=== PATIENT | male | born 1965 | race Caucasian/White ===

== ENCOUNTER 2020-02-25 22:07 | Inpatient (IN) | payer OTHER, SELFPAY ==
[~2020-02-25] VITALS: Ht 175.3 cm; Wt 99.3 kg
--- NOTE | 2020-02-25 22:09 | NUR ---
PT HARSHA ALS. TAKEN TO BED 7
[2020-02-25 22:20] VITALS: BP 107/74
--- NOTE | 2020-02-25 22:31 | NUR ---
RT AT BEDSIDE FOR EVALUATION.
[2020-02-25] MEDS ORDERED: LACTULOSE 20 GM/30 ML UDC PO ONE (22:40)
--- NOTE | 2020-02-25 22:51 | NUR ---
LYNSEY AND PCR SWABS COLLECTED AND WALKED TO LAB
[2020-02-25 22:55] LABS: APPEARANCE,URINE CLOUDY (CLEAR); BILIRUBIN,URINE 1+ (NEGATIVE); BLOOD, URINE 3+ (NEGATIVE); COLOR,URINE BROWN (YELLOW); LEUKOCYTE ESTERASE ,URINE TRACE (NEGATIVE); NITRITE, URINE POSITIVE (NEGATIVE); UGLUCOSE NEGATIVE (NEGATIVE)
--- NOTE | 2020-02-25 23:00 | NUR ---
PT WAS SENT FROM [facility] [place]UE TO HAVING SOB, HYPOXIA, AND COUGHING UP BLOOD. BILATERAL RHALES UPON AUSCALTAION, NONREBREATHER AT 10L O2. PT HAS DISTENDED ABD DUE TO ASCITES. PT CURRENTLY HAS F/C IN PLACE. ARRIVED WITH TWO IV'S ALREADY IN PLACE, PT HAS BEEN RECEIVING ANTIBIOTICS AT [facility] [place] FOR PNEUMONIA. A/O X 2. PT ARRIVED WITH F/C IN PLACE, DRAINING DARK COLORED URINE. PT PLACED ON BEDSIDE MONITOR, BED IN LOWEST POSITION AND SIDERAIL UP X 2 FOR PT SAFETY. NKA HX - HTN, PNEUMONIA, CIRRHOSIS, ALCOHOL ABUSE.
--- NOTE | 2020-02-25 23:04 | NUR ---
LAB AT BEDSIDE COLLECTING LABS
--- NOTE | 2020-02-25 23:06 | NUR ---
XRAY AT BEDSIDE
[2020-02-25 23:19] LABS: HEMOGLOBIN 12.9 g/dL (12.0-18.0); MEAN CORPUSCULAR HEMOGLOBIN 40 pg (27-31); MEAN CORPUSCULAR HGB CONC 32 g/dL (33-37); MEAN CORPUSCULAR VOLUME 123.6 fL (80-94); PLATELET COUNT (AUTO) 242 K/uL (140-450); RED BLOOD CELL COUNT(AUTO) 3.23 MIL/uL (4.20-6.10); RED CELL DISTRIBUTION WIDTH 13.6 % (11.6-13.7); WHITE BLOOD COUNT (AUTO) 19.4 K/uL (4.8-10.8)
[2020-02-25] MEDS ORDERED: PIPERACILLIN/TAZOBACTAM 3.375 GM in DEXTROSE 5% 50 ML IV ONE (23:40)
[2020-02-25 23:54] LABS: PROTHROMBIN TIME 18.5 secs (10.8-13.4)
--- NOTE | 2020-02-25 23:56 | NUR ---
PT WAS ATTEMPTING TO GET OUT OF BED, HE SAYS IT'S TIME TO GET UP NOW. REORIENTED PT AND REPOSITIONED IN BED.
[2020-02-26 00:09] LABS: ALBUMIN 2.6 g/dL (3.4-5.0); ANION GAP 10.6 (8-16); CARBON DIOXIDE 27.6 mmol/L (21-32); CREATININE 1.3 mg/dL (0.6-1.3); POTASSIUM 4.2 mmol/L (3.5-5.1); TOTAL BILIRUBIN 3.3 mg/dL (0.0-1.0)
[2020-02-26 00:15] LABS: RBC,URINE 50-80 /HPF (0-5)
[2020-02-26 00:17] LABS: YEAST,URINE Few /HPF (None Seen)
[2020-02-26 00:26] LABS: EOSINOPHILS % (MANUAL) 4 % (0-4); LYMPHOCYTES % (MANUAL) 9 % (20-46); MONOCYTES % (MANUAL) 5 % (5-12)
[2020-02-26] MEDS ORDERED: PIPERACILLIN/TAZOBACTAM 3.375 GM VIAL IV ONE (01:19)
[2020-02-26] MEDS ORDERED: cefTRIAXone 1,000 MG VIAL ONE (01:20)
--- NOTE | 2020-02-26 02:00 | NUR ---
LUNCH RELIEF FOR PRIMARY NURSE -- OBSERVED COFFEE GROUND EMESIS . PT SUCTIONED AND NEW NRB MASK AND GOWN PLACED ON PT. SAO2 INCREASED TO 97%. VSS.
--- NOTE | 2020-02-26 02:06 | NUR ---
CONTACTED DR. SPENCE AND MADE HIM AWARE OF PT EPISODE OF COFFEE GROUND EMESIS. PER DR. SPENCE NO NEW ORDERS, CONTINUE TO MONITOR AT THIS TIME.
--- NOTE | 2020-02-26 03:01 | NUR ---
PT REMAINS ON BEDSIDE MONITOR, NONREBREATHER AT 15L O2 SAT 99%. RESPIRATIONS REGULAR AND UNLABORED. WILL CONTINUE TO MONITOR PT.
[2020-02-26] MEDS ORDERED: METR500T1 IV (03:11)
[2020-02-26] MEDS ORDERED: MAGN241.1 PO (03:11)
[2020-02-26] MEDS ORDERED: PIPE100S2 IV (03:11)
[2020-02-26] MEDS ORDERED: VITA1TAB44 PO (03:11)
[2020-02-26] MEDS ORDERED: ATRN INH (03:11)
[2020-02-26] MEDS ORDERED: [UNRECOGNIZED DRUG - CODE] PO (03:11)
[2020-02-26 04:00] VITALS: BP 97/75
--- NOTE | 2020-02-26 04:00 | NUR ---
RECEIVED REPORT FROM ER NURSE. PATIENT IS LETHARGIC, UNRESPONSIVE WHEN TALKING. RESPIRATION EVEN UNLABORED ON 15L NON-REBREATHER MASK. SATING AT 97% NO DISTRESS NOTED. SKIN IS WARM AND DRY. IV PATENT AND INTACT. HEART RATE REGULAR. SINUS TACHY. S1&S2 NOTED. LUNG SOUNDS DIMINISHED UPON AUSCULTATION. BOWEL SOUNDS PRESENT IN ALL QUADRANTS. PATIENT ABDOMEN SOFT, DISTENDED, AND NON-TENDER. MORGAN CATHETER NOTED DRAINING DARK YELLOW URINE. MRSA SCREEN DONE. VITALS WERE TAKEN. ORIENT PATIENT TO ROOM, STAFF, AND CALL LIGHT. ALL SAFETY MEASURES IN PLACE. BED IS AT LOW POSITION. CALL LIGHT WITHIN REACH. WILL CONTINUE TO MONITOR.
--- NOTE | 2020-02-26 04:14 | NUR ---
Patient will be admitted to care of DR SPENCE. Admited to TELE. Will go to room 124. Belongings list completed. Report to ART MARTÍNEZ.
--- NOTE | 2020-02-26 04:30 | NUR ---
OBTAINED MEDICAL INFORMATION FROM NURSE SERNA FROM [facility] [place].
--- NOTE | 2020-02-26 05:00 | NUR ---
CHECKED ON PATIENT. PATIENT SLEEPING RESPIRATION EVEN UNLABORED ON 15L NON-REBREATHER MASK SATING 95%. WILL CONTINUE TO MONITOR
--- NOTE | 2020-02-26 05:45 | NUR ---
SPOKE WITH STELLA PATIENTS BROTHER. STELLA IS REQUESTING TO SPEAK WITH THE DOCTOR. WILL ENDORSE TO DAY SHIFT NURSE.
--- NOTE | 2020-02-26 07:32 | NUR ---
ENDORSED PATIENT TO DAY SHIFT NURSE FOR CONTINUITY OF CARE.
--- NOTE | 2020-02-26 07:42 | NUR ---
RECEIVED PT FROM RETAIL FIELD REPRESENTATIVE NURSE, ON 15 L NRB, 20G IV NOTED TO LFA SALINE LOCK, ISOLATION FOR COVID, PCR PENDING, PT IS RESTING IN BED, SAFETY AND FALL PRECAUTIONS IN PLACE, WILL CONTINUE TO MONITOR.
[2020-02-26 08:00] VITALS: BP 90/65
[2020-02-26] MEDS ORDERED: POTASSIUM CHLORIDE 40 MEQ, LIDOCAINE MPF 1% 25 MG in NACL 0.9% 250 ML IV PRN (08:15)
[2020-02-26] MEDS ORDERED: DOCUSATE SODIUM 100 MG GELCAP PO PRN (08:15)
[2020-02-26] MEDS ORDERED: ONDANSETRON 4 MG/2 ML VIAL IM/IVP PRN (08:15)
[2020-02-26] MEDS ORDERED: ACETAMINOPHEN 325 MG TAB PO PRN (08:15)
[2020-02-26] MEDS: NACL 0.9% 1,000 ML IV SCH ×2 (08:15→15:40)
[2020-02-26] MEDS ORDERED: guaiFENesin DM 200/20 MG-10 ML 10 ML UDC PO PRN (08:15)
[2020-02-26] MEDS ORDERED: ZOLPIDEM 5 MG TAB PO PRN (08:15)
[2020-02-26] MEDS ORDERED: HYDROcodone/APAP 7.5/325 MG 1 TAB PO PRN (08:15)
[2020-02-26] MEDS: PANTOPRAZOLE 40 MG TABEC PO SCH ×2 (09:00→18:03)
--- NOTE | 2020-02-26 09:00 | NUR ---
PT IS RESTING IN BED, NO SIGNS OF DISTRESS NOTED, WILL CONTINUE TO MAKE FREQUENT ROUNDS
--- NOTE | 2020-02-26 09:56 | NUR ---
PATIENT HAS BEEN SCREENED AND CATEGORIZED MODERATE NUTRITION RISK. PATIENT WILL BE SEEN WITHIN 3-5 DAYS OF ADMISSION. 02/28/20 03/01/[address]
[2020-02-26 10:30] LABS: PROTHROMBIN TIME 19.5 secs (10.8-13.4)
--- NOTE | 2020-02-26 11:15 | NUR ---
AWAITING ORDERS, NO SIGNS OF DISTRESS NOTED, WILL CONTINUE TO MONITOR.
[2020-02-26 12:00] VITALS: BP 98/62
[2020-02-26] MEDS: PIPERACILLIN/TAZOBACTAM 3.375 GM in DEXTROSE 5% 50 ML IV SCH ×2 (12:00→18:04)
--- NOTE | 2020-02-26 14:00 | NUR ---
PT IS IN BED, NO SIGNS OF DISTRESS NOTED, WILL CONTINUE TO MAKE FREQUENT ROUNDS
[2020-02-26 15:07] LABS: CHOL/HDL RATIO 5.3 (1-4.5); FREE T4 (FREE THYROXINE) 1.04 ng/dL (0.76-1.46); MAGNESIUM 1.8 mg/dL (1.8-2.4)
[2020-02-26 15:50] LABS: THYROID STIMULATING HORMONE 6.07 uIU/mL (0.34-3.74)
[2020-02-26 16:00] VITALS: BP 92/63
--- NOTE | 2020-02-26 18:05 | NUR ---
ADMINISTERED SCHEDULED MEDICATIONS, PT IS AWAKE, NO SIGNS OF DISTRESS NOTED, WILL CONTINUE TO MONITOR.
--- NOTE | 2020-02-26 18:24 | NUR ---
NON ADMINISTRATION OF PANTOPRAZOLE, PT IS ALTERED AND NOT ABLE TO SWALLOW.
[2020-02-26] MEDS: FLUCONAZOLE 200 MG/NS PREMIX 100 ML IV SCH (18:41)
--- NOTE | 2020-02-26 19:25 | NUR ---
ENDORSED PT TO LICENSED PRACTICAL NURSE NURSE FOR CONTINUITY OF CARE.
--- NOTE | 2020-02-26 19:30 | NUR ---
RECEIVED REPORT FROM DAY SHIFT NURSE. PATIENT IS LETHARGIC, RESPIRATION EVEN UNLABORED ON 15L NON-REBREATHER MASK. SKIN IS WARM AND DRY. IV PATENT AND INTACT. PLAN OF CARE WAS DISCUSSED. ALL SAFETY MEASURES IN PLACE, BED IS AT LOW POSITION. CALL LIGHT WITHIN REACH. WILL CONTINUE TO MONITOR.
[2020-02-26 20:00] VITALS: BP 94/63
--- NOTE | 2020-02-26 20:00 | NUR ---
RECEIVED TELEPHONE ORDER FROM DR. SPENCE FOR SWALLOW EVAL.
--- NOTE | 2020-02-26 21:30 | NUR ---
CHECKED ON PATIENT. PATIENT SLEEPING RESPIRATION EVEN UNLABORED ON 15L NON-REBREATHER MASK. WILL CONTINUE TO MONITOR.
--- NOTE | 2020-02-26 23:00 | NUR ---
PATIENT IS OFF UNIT AND WENT TO CT.
[2020-02-26 23:05] LABS: BARBITURATE, URINE NEGATIVE ng/ml (NEG <=200); BENZODIAZEPINE, URINE POSITIVE ng/mL (NEG <=200); CANNABINOID, URINE NEGATIVE ng/mL (NEG <=50); COCAINE, URINE NEGATIVE ng/mL (NEG <=300); OPIATE, URINE NEGATIVE ng/mL (NEG <=2000); PHENCYCLIDINE SCREEN,URINE NEGATIVE ng/mL (NEG <=25)
--- NOTE | 2020-02-26 23:10 | NUR ---
PATIENT CAME BACK FROM CT. NO DISTRESS NOTED.
[2020-02-27] VITALS: BP 98/64
--- NOTE | 2020-02-27 00:30 | NUR ---
SCHEDULED MEDS WERE GIVEN PER ORDER. NO ASE NOTED. WILL CONTINUE TO MONITOR.
[2020-02-27] MEDS: PIPERACILLIN/TAZOBACTAM 3.375 GM in DEXTROSE 5% 50 ML IV SCH ×4 (00:47→18:44)
[2020-02-27] MEDS: NACL 0.9% 1,000 ML IV SCH ×4 (00:48→22:29)
--- NOTE | 2020-02-27 01:41 | NUR ---
CHECKED ON PATIENT. PATIENT SLEEPING RESPIRATION EVEN UNLABORED ON 15L NON-REBREATHER MASK. NO DISTRESS NOTED, WILL CONTINUE TO MONITOR
[2020-02-27 04:00] VITALS: BP 93/56
--- NOTE | 2020-02-27 04:28 | NUR ---
PROVIDED MORNING CARE
[2020-02-27 07:07] LABS: BASOPHILS # (AUTO) 0.1 K/uL (0.00-0.22); BASOPHILS % (AUTO) 0.5 % (0.0-2.0); EOSINOPHILS # (AUTO) 0.5 K/uL (0-0.4); EOSINOPHILS % (AUTO) 3.2 % (0.0-4.0); HEMATOCRIT 35.3 % (36-52); HEMOGLOBIN 11.4 g/dL (12.0-18.0); LYMPHOCYTES # (AUTO) 1.8 K/uL (2.0-11.5); LYMPHOCYTES % (AUTO) 12.1 % (20.5-51.1); MEAN CORPUSCULAR HEMOGLOBIN 40 pg (27-31); MEAN CORPUSCULAR HGB CONC 32 g/dL (33-37); MEAN CORPUSCULAR VOLUME 124.7 fL (80-94); MONOCYTES # (AUTO) 1.5 K/uL (0.8-1.0); NEUTROPHILS # (AUTO) 11.2 K/uL (1.8-7.7); NEUTROPHILS % (AUTO) 74.2 % (42.2-75.2); PLATELET COUNT (AUTO) 195 K/uL (140-450); RED BLOOD CELL COUNT(AUTO) 2.83 MIL/uL (4.20-6.10); RED CELL DISTRIBUTION WIDTH 13.2 % (11.6-13.7); WHITE BLOOD COUNT (AUTO) 15.1 K/uL (4.8-10.8)
[2020-02-27 07:22] LABS: ANION GAP 13.5 (8-16); CARBON DIOXIDE 26.2 mmol/L (21-32); CREATININE 1.2 mg/dL (0.6-1.3); POTASSIUM 4.7 mmol/L (3.5-5.1)
--- NOTE | 2020-02-27 07:41 | NUR ---
ENDORSED PATIENT TO DAY SHIFT NURSE FOR CONTINUITY OF CARE
--- NOTE | 2020-02-27 07:42 | NUR ---
RECEIVED REPORT FROM PM RN FOR CONTINUITY OF CARE. PT IS STABLE
[2020-02-27 08:00] VITALS: BP 102/64
[2020-02-27] MEDS: PANTOPRAZOLE 40 MG TABEC PO SCH (08:22)
--- NOTE | 2020-02-27 08:25 | NUR ---
PT IS AWAKE AND RESPONSE WITH YES OR NO BY SHAKING HIS HEAD. PT IS NON-VERBAL, RECEIVING IVF TO LEFT FOREARM NS AT 135ML/HR. LUNG SOUNDS DIMINISHED AND ABD IS SOFT AND NONTENDER WITH ACTIVE BS X 4. HAS MORGAN CATH DRAINING ORION URINE. PT ON 15L NRB V/S: 97.3, 105, 20, 102/64, 98% ON 15 L NRB, PAIN FLACC-0. SAFETY MEASURES IN PLACE. WILL CONTINUE WITH POC.
--- NOTE | 2020-02-27 10:38 | NUR ---
PT RESTING IN BED IN NO DISTRESS, RECEIVING IVF AND REMAINS ON 15L NRB.
[2020-02-27 12:00] VITALS: BP 89/66
--- NOTE | 2020-02-27 12:45 | NUR ---
V/S: 96.9, 113, 20, 89/66, 95% ON 15 L NRB. REPOSITIONED, CALL NEEDS MET.
--- NOTE | 2020-02-27 14:50 | NUR ---
PT RESTING IN BED, REPOSITIONED ALL NEEDS MET.
[2020-02-27 16:00] VITALS: BP 86/59
--- NOTE | 2020-02-27 16:53 | NUR ---
OBTAINED TELEPHONE CONSENT FROM BROTHER FOR US GUIDED PARACENTESIS. FAMILY UNDERSTANDS PROCEDURES, RISK AND BENEFITS NO QUESTIONS AT THIS TIME. WAITING FOR MD TO SIGN CONSENT. RADIOLOGY DEPT UPDATED
--- NOTE | 2020-02-27 18:35 | NUR ---
RECEIVED PHONE CALL FROM RADIOLOGY STATING US GUIDED PARACENTESIS WILL BE DONE ON SATURDAY. FAMILY NOTIFIED. PT CONTINUES TO REFUSE TO EAT DESPITE ENCOURAGEMENT
[2020-02-27] MEDS: FLUCONAZOLE 200 MG/NS PREMIX 100 ML IV SCH (19:00)
--- NOTE | 2020-02-27 19:51 | NUR ---
PT ENDORSED TO RN FOR CONTINUITY OF CARE. PT REMAINS STABLE ON 15L NRB Addendum: 02/27/20 at 1957 by Janis Sanchez RN NOTIFIED FAMILY STELLA (BROTHER) THAT PARACENTESIS WILL BE DONE SATURDAY.
[2020-02-27 20:00] VITALS: BP 100/57
--- NOTE | 2020-02-27 20:20 | NUR ---
CHANGED IV FLUID. NO DISTRESS NOTED. WILL CONTINUE TO MONITOR
--- NOTE | 2020-02-27 22:03 | NUR ---
CHECKED ON PATIENT. PATIENT SLEEPING RESPIRATION EVEN UNLABORED ON 15L NON-REBREATHER MASK. NO DISTRESS NOTED. WILL CONTINUE TO MONITOR
[2020-02-28] VITALS: BP 90/57
--- NOTE | 2020-02-28 00:40 | NUR ---
ENDORSED PATIENT TO LUCY FOR CONTINUITY OF CARE.
[2020-02-28] MEDS: PIPERACILLIN/TAZOBACTAM 3.375 GM in DEXTROSE 5% 50 ML IV SCH ×4 (01:13→18:46)
--- NOTE | 2020-02-28 03:00 | NUR ---
RECEIVED ENDORSEMENT FROM MAURICIO CORDOVA. LYING IN BED, ON 15L NRB, O2 SAT WNL, NO DISTRESS, NO SOB, IVF INFUSING, FALL PROTOCOL IN PLACE, DROPLET ISO OBSERVED, PLAN OF CARE DISCUSSED, CALL LIGHT WITHIN REACH.
[2020-02-28 04:00] VITALS: BP 93/49
[2020-02-28] MEDS: NACL 0.9% 1,000 ML IV SCH ×3 (05:09→19:29)
--- NOTE | 2020-02-28 05:10 | NUR ---
PT ASLEEP, RESPIRATION EVEN AND UNLABORED, ZOSYN IVPB GIVEN ORDERED, NO A/R NOTED, CALL LIGHT WITHIN REACH.
[2020-02-28 07:04] LABS: BASOPHILS # (AUTO) 0.2 K/uL (0.00-0.22); BASOPHILS % (AUTO) 1.3 % (0.0-2.0); EOSINOPHILS # (AUTO) 0.5 K/uL (0-0.4); EOSINOPHILS % (AUTO) 3.1 % (0.0-4.0); HEMATOCRIT 32.7 % (36-52); HEMOGLOBIN 10.7 g/dL (12.0-18.0); LYMPHOCYTES % (AUTO) 13.6 % (20.5-51.1); MEAN CORPUSCULAR HEMOGLOBIN 41 pg (27-31); MEAN CORPUSCULAR HGB CONC 33 g/dL (33-37); MEAN CORPUSCULAR VOLUME 124.8 fL (80-94); MONOCYTES # (AUTO) 1.4 K/uL (0.8-1.0); MONOCYTES % (AUTO) 9.4 % (1.7-9.3); NEUTROPHILS # (AUTO) 10.7 K/uL (1.8-7.7); NEUTROPHILS % (AUTO) 72.6 % (42.2-75.2); PLATELET COUNT (AUTO) 180 K/uL (140-450); RED BLOOD CELL COUNT(AUTO) 2.62 MIL/uL (4.20-6.10); RED CELL DISTRIBUTION WIDTH 13.5 % (11.6-13.7); WHITE BLOOD COUNT (AUTO) 14.7 K/uL (4.8-10.8)
[2020-02-28 07:21] LABS: ANION GAP 14.7 (8-16); CARBON DIOXIDE 23.2 mmol/L (21-32); CREATININE 1.1 mg/dL (0.6-1.3); POTASSIUM 4.9 mmol/L (3.5-5.1)
--- NOTE | 2020-02-28 07:53 | NUR ---
PT STABLE, ENDORSED TO AM SHIFT RN FOR CONTINUITY OF CARE.
--- NOTE | 2020-02-28 07:54 | NUR ---
RECEIVED REPORT FROM MANAGER SPORTS NURSE AT BEDSIDE FOR CONTINUITY OF CARE. PATIENT IS LETHARGIC, RESPIRATION EVEN UNLABORED ON 15L NON-REBREATHER MASK. VS WNL. SKIN IS WARM AND DRY. IV PATENT AND INTACT. PLAN OF CARE WAS DISCUSSED. PCR COVID NEGATIVE. ALL SAFETY MEASURES IN PLACE, BED IS AT LOW POSITION WITH BRAKES ON. CALL LIGHT WITHIN REACH. WILL CONTINUE TO MONITOR.
[2020-02-28 08:00] VITALS: BP 108/74
[2020-02-28] MEDS: PANTOPRAZOLE 40 MG TABEC PO SCH (09:00)
--- NOTE | 2020-02-28 10:00 | NUR ---
GAVE REPORT TO AARON MARTÍNEZ. PATIENT RESTING IN BED. NO S/S OF SOB OR DISTRESS NOTED. HR 116, O2 SAT 95%.
--- NOTE | 2020-02-28 10:05 | NUR ---
RECEIVED PATIENT FROM HERNÁN RN. PATIENT IN BED EYES CLOSED, CHEST NOTED RISING. NO ACUTE S/S DISTRESS. RESP EVEN AND UNLABORED ON 15L NONREBREATHER, O2SAT 94%. HOB ELEVATED. SAFETY MEASURES IN PLACE. CALL LIGHT WITHIN REACH. WILL CONTINUE TO MONITOR.
--- NOTE | 2020-02-28 11:04 | NUR ---
DC PLANN[age] YRS OLD MALE PATIENT WAS ADMITTED FROM [facility] [place] WITH A DX OF HYPOXIA, PNEUMONIA, ASCITES, UTI AND LIVER CIRRHOSIS. PT HAS A HX OF LIVER FAILURE, ALCOHOL ABUSE AND HTN. CXR SHOWED BIBASILAR CONSOLIDATION , CT CHEST SHOWD BILATERAL PLEURAL EFFUSION WITH ATELECTASIS AND ABDOMINAL ULTRASOUND SHOWED ASCITES. RAPID AND PCR COVID TEST NEGATIVE.STARTED IVF, IV ABX ZOSYN AND CONTINUED HOME MEDS. CONSULTED WITH GI AND PULMO. DC PLAN TO GO BACK TO [facility]. FAXED ALL THE CLINICALS TO [facility] AND RECEIVED CONFIRMATION CM TO FOLLOW Addendum: 03/01/20 at 1245 by Griselda Palomares RN DC PLANNING: PT IS STILL ON 15LNRB SATING 97% , LOW BP 88/50 HR 105 PARACENTESIS DONE SEEN BY TOMMIE CONTINUE WITH CURRENT TREATMENT. Addendum: 03/02/20 at 1521 by Griselda Palomares RN DC PLANNING: PT IS INTUBATED SEDATED AT THIS TIME CM TO FOLLOW Addendum: 03/05/20 at 1749 by Kayla Wallace CM UPDATED CLINICALS SENT TO [facility]. Addendum: 03/06/20 at 1153 by Kayla Wallace CM UPDATED CLINICALS SENT TO [place].
--- NOTE | 2020-02-28 11:05 | NUR ---
PATIENT NOTED WITH FACE MASK OFF, NO ACUTE S/S. NONREBREATHER IMMEDIATELY REAPPLIED., O2SAT 92%. PATIENT ENCOURAGED TO KEEP HIS MASK ON AT ALL TIMES. REINFORCEMENT NEEDED. WILL MAKE ROUNDS FREQUENTLY. NO ACUTE S/S DISTRESS AT THIS TIME. CALL LIGHT WITHIN REACH. WILL CONTINUE TO MONITOR.
[2020-02-28 12:00] VITALS: BP 108/75
--- NOTE | 2020-02-28 13:35 | NUR ---
PATIENT IN BED SLEEPING, CHEST NOTED RISING. NO ACUTE S/S DISTRESS. CALL LIGHT WITHIN REACH.WILL CONTINUE TO MONITOR.
[2020-02-28 16:00] VITALS: BP 99/54
--- NOTE | 2020-02-28 16:45 | NUR ---
PATIENT IN BED AWAKE, EYES OPEN WITH TRACKING MOVEMENT. RESPONDED TO NAME. APHASIC AT THIS TIME. NO ACUTE S/S DISTRESS. CALL LIGHT WITHIN REACH. WILL CONTINUE TO MONITOR.
--- NOTE | 2020-02-28 18:05 | NUR ---
PATIENT IN BED SLEEPING, CHEST NOTED RISING, RESP EVEN AND UNLABORED ON 15L NONREBREATHER, O2SAT 97%. NO ACUTE S/S DISTRESS AT THIS TIME. CALL LIGHT WITHIN REACH. WILL CONTINUE TO MONITOR.
--- NOTE | 2020-02-28 19:24 | NUR ---
ENDORSED PATIENT TO NIGHT NURSE. PATIENT IN STABLE CONDITION.
--- NOTE | 2020-02-28 19:25 | NUR ---
RECEIVED BEDSIDE REPORT FROM DAY SHIFT NURSE. PATIENT IS SLEEPING AROUSABLE BY TOUCH AND NAME. RESPIRATION EVEN UNLABORED 15L NON-REBREATHER MASK. SATING 96%. NO DISTRESS NOTED. SKIN IS WARM AND DRY. IV PATENT AND INTACT. PLAN OF CARE WAS DISCUSSED. ALL SAFETY MEASURE IN PLACE. BED IS AT LOW POSITION. CALL LIGHT WITHIN REACH. WILL CONTINUE TO MONITOR.
[2020-02-28] MEDS: FLUCONAZOLE 200 MG/NS PREMIX 100 ML IV SCH (19:29)
[2020-02-28 20:00] VITALS: BP 96/60
--- NOTE | 2020-02-28 21:59 | NUR ---
CHECKED ON PATIENT. PATIENT SLEEPING RESPIRATION EVEN UNLABORED ON ROOM 15LNON-REBREATHER MASK. SATING 95%. NO DISTRESS NOTED. WILL CONTINUE TO MONITOR
[2020-02-29] VITALS: BP 82/48
[2020-02-29] MEDS: PIPERACILLIN/TAZOBACTAM 3.375 GM in DEXTROSE 5% 50 ML IV SCH ×4 (00:36→18:44)
--- NOTE | 2020-02-29 00:40 | NUR ---
ADMINISTERED IV ZOSYN PER ORDER. WILL CONTINUE TO MONITOR
[2020-02-29] MEDS: NACL 0.9% 1,000 ML IV SCH (03:00)
--- NOTE | 2020-02-29 03:03 | NUR ---
MADE ROUNDS. PATIENT SLEEPING RESPIRATION EVEN UNLABORED ON ROOM 15LNON-REBREATHER MASK. NO DISTRESS NOTED. WILL CONTINUE TO MONITOR
[2020-02-29 04:00] VITALS: BP 99/63
[2020-02-29 06:48] LABS: CARBON DIOXIDE 24.8 mmol/L (21-32); POTASSIUM 3.8 mmol/L (3.5-5.1)
[2020-02-29 06:53] LABS: BASOPHILS # (AUTO) 0.1 K/uL (0.00-0.22); BASOPHILS % (AUTO) 0.4 % (0.0-2.0); EOSINOPHILS # (AUTO) 0.5 K/uL (0-0.4); EOSINOPHILS % (AUTO) 3.2 % (0.0-4.0); HEMATOCRIT 33.6 % (36-52); LYMPHOCYTES # (AUTO) 2.1 K/uL (2.0-11.5); LYMPHOCYTES % (AUTO) 14.5 % (20.5-51.1); MEAN CORPUSCULAR HEMOGLOBIN 41 pg (27-31); MEAN CORPUSCULAR HGB CONC 33 g/dL (33-37); MEAN CORPUSCULAR VOLUME 125.2 fL (80-94); MONOCYTES # (AUTO) 1.2 K/uL (0.8-1.0); MONOCYTES % (AUTO) 8.6 % (1.7-9.3); NEUTROPHILS # (AUTO) 10.5 K/uL (1.8-7.7); NEUTROPHILS % (AUTO) 73.3 % (42.2-75.2); PLATELET COUNT (AUTO) 185 K/uL (140-450); RED BLOOD CELL COUNT(AUTO) 2.68 MIL/uL (4.20-6.10); RED CELL DISTRIBUTION WIDTH 13.7 % (11.6-13.7); WHITE BLOOD COUNT (AUTO) 14.4 K/uL (4.8-10.8)
--- NOTE | 2020-02-29 07:58 | NUR ---
RECEIVED REPORT FROM NIGHT NURSE FOR CONTINUITY OF CARE, PT IS STABLE. PT ASLEEP. PT ON 15L NON-REBREATHER. PT HAS LFA 20G AND LH 20G INFUSING NS AT 135. PT HAS A MORGAN CATH IN PLACE, SAFETY MEASURES IN PLACE. WILL CONTINUE TO MONITOR.
--- NOTE | 2020-02-29 07:59 | NUR ---
ENDORSED PATIENT TO DAY SHIFT NURSE FOR CONTINUITY OF CARE
[2020-02-29 08:00] VITALS: BP 91/57
[2020-02-29] MEDS: PANTOPRAZOLE 40 MG TABEC PO SCH (09:00)
--- NOTE | 2020-02-29 09:22 | NUR ---
PT ASLEEP, UNABLE TO GIVE PT MORNING MED. VITALS STABLE, WILL CONTINUE TO MONITOR.
--- NOTE | 2020-02-29 11:44 | NUR ---
NOTIFIED DR SPENCE PT IS LETHARGIC AND HAS EDEMATOUS SCROTUM, RECEIVED TORB FOR D5W 75 ML/H, WILL INPUT ORDER AND CARRY IT OUT.
[2020-02-29 12:00] VITALS: BP 96/56
[2020-02-29] MEDS: DEXTROSE 5% 1,000 ML IV SCH (12:15)
--- NOTE | 2020-02-29 12:16 | NUR ---
ADMINISTERED SCHEDULED MEDICATION, MEDICATION EDUCATION PROVIDED. PT ASLEEP, PT TOLERATED WELL. PT IS STABLE, WILL CONTINUE TO MONITOR.
--- NOTE | 2020-02-29 14:20 | NUR ---
PARACENTENSIS FINISHED AND REMOVED 1.7L, PT IS HYPOTENSIVE, WILL CONTINUE TO MONITOR.
[2020-02-29] MEDS ORDERED: MIDODRINE 5 MG TAB PO SCH (15:00)
[2020-02-29 16:00] VITALS: BP 91/62
--- NOTE | 2020-02-29 18:30 | NUR ---
NGT REMOVED, PT BP 88/49, HR 111 O2 98 RR 24, NOTIFIED DR SPENCE.
--- NOTE | 2020-02-29 19:15 | NUR ---
RECEIVED BEDSIDE REPORT FROM DAY SHIFT NURSE. PATIENT IS SLEEPING, WITHDRAWS TO PAIN. RESPIRATION EVEN UNLABORED ON 13L NRB. NO DISTRESS NOTED. SKIN IS WARM AND DRY. IV PATENT AND INTACT. MORGAN CATHETER NOTED DRAINING YELLOW URINE. PLAN OF CARE UPDATED. ALL SAFETY MEASURES IN PLACE. BED IS AT LOW POSITION. CALL LIGHT WITHIN REACH. WILL CONTINUE TO MONITOR
--- NOTE | 2020-02-29 19:30 | NUR ---
ENDORSE TO NIGHT NURSE FOR CONTINUITY OF CARE, PT IS STABLE
[2020-02-29 20:00] VITALS: BP 86/56
--- NOTE | 2020-02-29 20:30 | NUR ---
INSERT NGTUBE TO LEFT NARE. WILL ORDER FOR XRAY FOR PLACEMENT VERIFICATION.
[2020-02-29] MEDS: LACTULOSE 20 GM/30 ML UDC PO SCH (21:00)
--- NOTE | 2020-02-29 22:00 | NUR ---
NGTUBE IS IN PLACE. VERIFIED VIA XRAY. PER DR. SPENCE NO NEED TO ADMINISTER PROAMATINE DUE TO PATIENT BP STABLE.
--- NOTE | 2020-02-29 23:10 | NUR ---
PATIENT LEFT OFF UNIT FOR CT.
--- NOTE | 2020-02-29 23:19 | NUR ---
PATIENT IS BACK. NO DISTRESS NOTED. WILL CONTINUE TO MONITOR
[2020-03-01] VITALS: BP 102/63
[2020-03-01] MEDS: PIPERACILLIN/TAZOBACTAM 3.375 GM in DEXTROSE 5% 50 ML IV SCH ×4 (00:11→18:40)
[2020-03-01] MEDS: DEXTROSE 5% 1,000 ML IV SCH ×3 (01:22→22:03)
--- NOTE | 2020-03-01 01:25 | NUR ---
MADE ROUNDS. PATIENT IS SLEEPING RESPIRATION EVEN UNLABORED ON 15L NRB O2. NO DISTRESS NOTED. WILL CONTINUE TO MONITOR
--- NOTE | 2020-03-01 03:08 | NUR ---
MADE ROUNDS. PATIENT IS SLEEPING RESPIRATION EVEN UNLABORED ON 15L NRB O2. NO DISTRESS NOTED. WILL CONTINUE TO MONITOR
[2020-03-01 04:00] VITALS: BP 92/61
[2020-03-01 04:13] LABS: APPEARANCE,SPUN,BODY FLUID CLEAR (CLEAR); APPEARANCE,UNSPUN,BODY FLUID CLEAR (CLEAR); SPECIMENTYPE,BODY FLUID PARACENTESIS
[2020-03-01 04:24] LABS: COLOR,BODY FLUID YELLOW (LT YELLOW); RBC, BODY FLUID 16 /cu. mm.; TOTAL VOLUME,BODY FLUID 2725 mL; WBC, BODY FLUID 4 /cu. mm.
[2020-03-01 04:25] LABS: GLUCOSE,BODY FLUID 108 mg/dL
[2020-03-01 06:45] LABS: ANION GAP 9.7 (8-16); CARBON DIOXIDE 27.9 mmol/L (21-32); CREATININE 1.1 mg/dL (0.6-1.3); POTASSIUM 3.6 mmol/L (3.5-5.1)
[2020-03-01 06:55] LABS: BASOPHILS # (AUTO) 0.2 K/uL (0.00-0.22); BASOPHILS % (AUTO) 1.4 % (0.0-2.0); EOSINOPHILS # (AUTO) 0.4 K/uL (0-0.4); EOSINOPHILS % (AUTO) 3.1 % (0.0-4.0); HEMATOCRIT 34.3 % (36-52); HEMOGLOBIN 11.2 g/dL (12.0-18.0); LYMPHOCYTES # (AUTO) 1.9 K/uL (2.0-11.5); LYMPHOCYTES % (AUTO) 14.8 % (20.5-51.1); MEAN CORPUSCULAR HEMOGLOBIN 41 pg (27-31); MEAN CORPUSCULAR HGB CONC 33 g/dL (33-37); MEAN CORPUSCULAR VOLUME 124.8 fL (80-94); MONOCYTES # (AUTO) 1.2 K/uL (0.8-1.0); MONOCYTES % (AUTO) 9.4 % (1.7-9.3); NEUTROPHILS # (AUTO) 9.1 K/uL (1.8-7.7); NEUTROPHILS % (AUTO) 71.3 % (42.2-75.2); PLATELET COUNT (AUTO) 166 K/uL (140-450); RED BLOOD CELL COUNT(AUTO) 2.75 MIL/uL (4.20-6.10); WHITE BLOOD COUNT (AUTO) 12.7 K/uL (4.8-10.8)
--- NOTE | 2020-03-01 07:12 | NUR ---
ENDORSED PATIENT TO DAY SHIFT NURSE FOR CONTINUITY OF CARE.
--- NOTE | 2020-03-01 07:13 | NUR ---
RECEIVED REPORT FROM NIGHT NURSE FOR CONTINUITY OF CARE. PT IS STABLE. PT IS ASLEEP. PT HAS LFA20G INFUSING D5W AT 75ML/H, AND LH 20G SALINE LOCK. PT HAS MORGAN CATHETER IN PLACE, NGT IN LEFT NARES. PT ON 15L NON-REBREATHER MASK. SAFETY MEASURES IN PLACE, WILL CONTINUE TO MONITOR.
[2020-03-01 08:00] VITALS: BP 88/50
[2020-03-01] MEDS: PANTOPRAZOLE 40 MG TABEC PO SCH (08:43)
[2020-03-01] MEDS: LACTULOSE 20 GM/30 ML UDC PO SCH ×2 (08:43→21:55)
--- NOTE | 2020-03-01 08:49 | NUR ---
ADMINISTERED SCHEDULED MEDICATION, MEDICATION EDUCATION PROVIDED. PT TOLERATED WELL. PT IS STABLE, WILL CONTINUE TO MONITOR. NOTIFIED DR SPENCE OF PT LOW BP 88/50 AND RECEIVED ORDER FOR MIDODRINE 10MG Q8H, WILL INPUT ORDER AND CARRY IT OUT
[2020-03-01] MEDS ORDERED: MIDODRINE 5 MG TAB ONE (09:43)
[2020-03-01] MEDS: MIDODRINE 5 MG TAB PO SCH ×2 (09:45→21:55)
--- NOTE | 2020-03-01 09:48 | NUR ---
RECEIVED TORB FROM DR SPENCE TO GIVE MIDODRINE NOW FOR BP OF 88/50, MEDICATION ADMINISTERED. PT TOLERATED WELL. PT IS STABLE, WILL CONTINUE TO MONITOR.
[2020-03-01 12:00] VITALS: BP 94/52
--- NOTE | 2020-03-01 12:43 | NUR ---
ADMINISTERED SCHEDULED MEDICATION, MEDIATION EDUCATION PROVIDED, PT LETHARGIC, PT TOLERATED WELL, PT IS STABLE, WILL CONTINUE TO MONITOR.
--- NOTE | 2020-03-01 14:38 | NUR ---
ADMINISTERED SCHEDULED FLUIDS, PT IS STABLE, WILL CONTINUE TO MONITOR
--- NOTE | 2020-03-01 15:49 | NUR ---
03/01/20 RD INITIAL ASSESSMENT COMPLETED PLEASE REFER TO NUTRITION ASSESSMENT UNDER CARE ACTIVITY FOR ESTIMATED NUTRITIONAL NEEDS. 1. CONSIDER ENTERAL SUPPORT WITH OSMOLITE @ 60 ML/HR X 24 HR. START AT 10, INCREASE BY 10 Q4H -THIS WILL PROVIDE 1440 ML OF VOLUME, 1097 ML OF WATER, 2160 KCAL AND 90 GM OF PROTEIN, MEETING >90% OF KCAL AND PROTEIN NEEDS. 2. RECOMMEND FREE WATER FLUSH OF [address] TO FOLLOW-UP 2-3 DAYS, HIGH RISK HASEEB EGAN RD
[2020-03-01 16:00] VITALS: BP 91/58
--- NOTE | 2020-03-01 18:09 | NUR ---
NOTIFIED DR SPENCE ABOUT FNS DIETARY RECOMMENDATION, AND PT HAS DISTENDED ABD. RECEIVED TORB FOR FLEET ENEMA. WILL INPUT ORDER AND CARRY IT OUT.
[2020-03-01] MEDS ORDERED: SODIUM PHOSPHATE 118 ML ENEM RC SCH (18:10)
--- NOTE | 2020-03-01 18:44 | NUR ---
ADMINISTERED SCHEDULED MEDICATION, MEDICATION EDUCATION PROVIDED. PT TOLERATED WELL. PT IS STABLE, WILL CONTINUE TO MONITOR.
[2020-03-01 20:00] VITALS: BP 95/62
--- NOTE | 2020-03-01 22:17 | NUR ---
ADMINISTERED SCHEDULED MEDICATION, MEDICATION EDUCATION PROVIDED. PT TOLERATED WELL. PT IS STABLE, WILL CONTINUE TO MONITOR.
--- NOTE | 2020-03-01 23:05 | NUR ---
RECEIVED REPORT FROM HAMMAD MARTÍNEZ FOR CONTINUITY OF CARE. PT IS LETHARGIC WITH 15L NONREBREATHER, BEDBOUND, SKIN IS INTACT. PT HAS LFA20G INFUSING D5W AT 75ML/H, AND LH 20G SALINE LOCK. PT HAS MORGAN CATHETER IN PLACE, NGT IN LEFT NARES WITH NO FEEDING. SAFETY MEASURES IN PLACE, WILL CONTINUE TO MONITOR.
--- NOTE | 2020-03-01 23:20 | NUR ---
ENDORSE PT TO NIGHT NURSE FOR CONTINUITY OF CARE
[2020-03-02] VITALS (26 sets, daily range): BP systolic 82–135; BP diastolic 48–75
--- NOTE | 2020-03-02 00:15 | NUR ---
CALLED TO PT ROOM FOR LOW SPO2, WHEN ARRIVED SPO2 79% ON NRB, PT NON RESPONSIVE AND NON RESPONSIVE TO STERNAL RUBS. UPDATED ER DR ON PT STATUS AND POSSIBLE NEED FOR INTUBATION.
--- NOTE | 2020-03-02 00:32 | NUR ---
PT INTUBATED BY ER PHYSICIAN. 8.0 ETT SECURED @25 TEETH/GUM, CO2 DETECTOR ADEQUATE COLOR CHANGE WITH BILATERAL BREATH SOUNDS, CXR TO BE ORDERED.
--- NOTE | 2020-03-02 00:36 | NUR ---
PT PLACED ON VENT. SETTINGS MADE BY ER PHYSICIAN, AC 16, VT 500, PEEP 8 AND FIO2 100%. VENT PLUGGED INTO A RED OUTLET WITH ALARMS ON AND FUNCTIONING. ETT IS SECURE WITH ANCHOR FAST DEVICE. WILL CONTINUE TO MONITOR.
[2020-03-02] MEDS ORDERED: PROPOFOL 1000 MG/100 ML PREMIX 100 ML IV ONE (01:08)
--- NOTE | 2020-03-02 01:15 | NUR ---
HANGED PROPOFOL AT 5MCG/KG/MIN (2.22 ML/RH); DRY WEIGHT 74KG. BP 107/73, HR 114, RR 16, 97% o2 SAT. VENT SETTING AC TV 500, PEEP 8, FIO2 100%, RR 16
[2020-03-02] MEDS ORDERED: PROPOFOL 200 MG/20 ML VIAL IV SCH (01:55)
--- NOTE | 2020-03-02 02:15 | NUR ---
LET DR FREDERICK KNOW THAT PATIENT JUST GOT INTUBATED AND TRANSFER TO ICU
--- NOTE | 2020-03-02 02:31 | NUR ---
DR VICKI SERRANO PENDING CALL BACK TO INFORM HIM OF PT CRITICAL RESULTS POST INTUBATION PH [phone] CO2 52.3 PO2 94.4 HCO3 22.5 BE -5.1
--- NOTE | 2020-03-02 02:38 | NUR ---
DR COVARRUBIAS ALSO PGD PENDING CALL BACK
--- NOTE | 2020-03-02 02:40 | NUR ---
PER ABG RESULTS RR INCREASED TO 20, PT TOLERATING WELL. WAITING FOR PLANT MAINTENANCE MECHANIC TO CALL BACK. WILL CONTINUE TO MONITOR.
[2020-03-02] MEDS: MIDODRINE 5 MG TAB PO SCH ×3 (05:38→21:23)
--- NOTE | 2020-03-02 05:55 | NUR ---
WESTLEYD WAS AWARE OF THE RESULT OF THE CXR, NO NEW ORDER
--- NOTE | 2020-03-02 06:14 | NUR ---
TEXTED DR FREDERICK IF D5 @75ML/HR STILL NEEDS TO BE CONTINUED. TEXTED BACK TO DECREASE TO 25ML/HR
[2020-03-02 06:35] LABS: BASOPHILS # (AUTO) 0.1 K/uL (0.00-0.22); BASOPHILS % (AUTO) 0.8 % (0.0-2.0); EOSINOPHILS # (AUTO) 0.5 K/uL (0-0.4); EOSINOPHILS % (AUTO) 2.7 % (0.0-4.0); HEMATOCRIT 38.1 % (36-52); HEMOGLOBIN 12.4 g/dL (12.0-18.0); LYMPHOCYTES % (AUTO) 11.8 % (20.5-51.1); MEAN CORPUSCULAR HEMOGLOBIN 40 pg (27-31); MEAN CORPUSCULAR HGB CONC 33 g/dL (33-37); MEAN CORPUSCULAR VOLUME 123.3 fL (80-94); MONOCYTES # (AUTO) 1.7 K/uL (0.8-1.0); NEUTROPHILS # (AUTO) 12.9 K/uL (1.8-7.7); NEUTROPHILS % (AUTO) 74.7 % (42.2-75.2); PLATELET COUNT (AUTO) 178 K/uL (140-450); RED BLOOD CELL COUNT(AUTO) 3.09 MIL/uL (4.20-6.10); RED CELL DISTRIBUTION WIDTH 14.1 % (11.6-13.7); WHITE BLOOD COUNT (AUTO) 17.3 K/uL (4.8-10.8)
[2020-03-02 06:38] LABS: ANION GAP 11.3 (8-16); CARBON DIOXIDE 27.3 mmol/L (21-32); CREATININE 1.2 mg/dL (0.6-1.3); POTASSIUM 3.6 mmol/L (3.5-5.1)
--- NOTE | 2020-03-02 07:17 | NUR ---
WILL ENDORSE TO DAY SHIFT NURSE FOR CONTINUITY CARE
[2020-03-02] MEDS: PROPOFOL 1000 MG/100 ML PREMIX 100 ML IV PRN (07:30)
--- NOTE | 2020-03-02 07:30 | NUR ---
BEDSIDE REPORT RECEIVED FROM SPECIAL EQUIPMENT TECHNICIAN NURSE OWN, PT INTUBATED SEDATED WITH PROPOFOL AT 5MCG TO RASS-3, DRY WT 63.5KG, RESPONDS TO PAINFUL STIMULI, VENT SETTING ACPC 100% FIO2, RR 20, PEEP 8, OGT IN PLACE, NO RESIDUAL, RESP EVEN UNLABORED, SYNCH WITH VENT, EQUAL BILAT CHEST RISE AND FALL, SKIN WARM DRY COLOR WNL, SR-ST ON MONITOR AT 108, ABD SOFT, LARGE, DISTENDED, S/P PARACENTHESIS, SIT EWNL, MORGAN CATH IN PLACE, FC DONE, CHG WIPE DONE, ORAL CARE DONE. ALL SAFETY MEASRUES IN PLACE, WILL CONTIINUE TO MONITOR Addendum: 03/02/20 at 1229 by Lexi Boswell RN DRY WT 74KG
--- NOTE | 2020-03-02 08:13 | NUR ---
RECEIVED ON A PB 840 VENTILATOR PLUGGED INTO RED OUTLET TOLERATING WELL WITHOUT ADVERSE REACTIONS NOTED TO AN ENDOTRACHEAL TUBE #8.0 SECURED AT 25cm TEETH/GUM LINE WITH AN ANCHOR FAST CUFF PRESSURE CHECKED NOTED AMBU BAG AT BEDSIDE LOC RESTING COMFORTABLY GOOD CHEST RISE ENDOTRACHEAL SUCTION FOR SMALL THICK YELLOW SECRETIONS AIRWAY PATENT
[2020-03-02] MEDS ORDERED: PANTOPRAZOLE 40 MG INJ VIAL ONE (08:20)
[2020-03-02] MEDS: LACTULOSE 20 GM/30 ML UDC PO SCH ×2 (09:35→21:22)
[2020-03-02] MEDS: PANTOPRAZOLE 40 MG INJ VIAL IVP SCH (09:35)
--- NOTE | 2020-03-02 12:25 | NUR ---
SEDATED RESTING COMFORTABLY EQUAL CHEST RISE GOOD CHEST RISE AND AERATION THROUGHOUT BILATERAL LUNG LEOS AIRWAY PATENT
--- NOTE | 2020-03-02 13:20 | NUR ---
SPOKE WITH BROTHER STELLA, PT CONDITION UPDATE PROVIDED, REPORTED TO HIM THAT PT WAS INTUBATED LAST NIGHT FOR RESP FAILURE, STELLA REQUESTS TO SPEAK WITH A PHYSICIAN, DR MAURICE NOTIFIED.
--- NOTE | 2020-03-02 13:27 | NUR ---
CALLED DR. MAURICE FOR TUBE FEEDING RECOMMENDATIONS. DR. MUARICE APPROVED.
--- NOTE | 2020-03-02 13:42 | NUR ---
SOCIAL WORK NOTE: MAI CONTACTED PATIENT'S BROTHER STELLA POLLOCK [phone]. STELLA REQUESTED FOR DOCUMENTATION TO BE COMPLETED REGARDING PATIENT BEING INCAPACITATED. STELLA REQUESTED FOR PHYSICIAN TO COMPLETE DECLARATION OF INCAPACITY. MAI INFORMED STELLA THAT PCP COMPLETES FORM. STELLA REQUESTED TO SPEAK TO BIOSOLIDS MANAGEMENT TECHNICIAN. MAI TRANSFERRED STELLA. MAI WILL REMAIN AVAILABLE IF FURTHER ISSUES ARISE. Addendum: 03/03/20 at 1415 by Peace Guajardo CM YAIMA spoke with pt's brother Stella; Stella clarified the letter that he needs to use the financial power of prosecuting attorney that pt signed in 2014. COMPUTER OPERATIONS ANALYST spoke with physician; letter has been written and signed by COMPUTER OPERATIONS ANALYST and physician. [facility] has sent letter to pt's brother via e-mail ([email or web address]). COMPUTER OPERATIONS ANALYST spoke with pt's brother about pt's wishes and code status. Pt's brother states that the end goal is to see if pt is eligible for a liver transplant down the road. Pt's brother understands pt's current condition and states that he would like to see if pt can be weaned from the ventilator. Pt's brother states that if pt is unable to be weaned that he will look at comfort measures and removing ventilator; pt's brother states that he does not feel he is ready to make that decision at this time due to the intubation happening recently.
--- NOTE | 2020-03-02 13:51 | NUR ---
BED BATH GIVE, PERICARE DONE, PT WITH LOOSE STOOL X1.
--- NOTE | 2020-03-02 15:08 | NUR ---
PER DR SEVILLA, IVF CHANGED TO 1/2 NS AT 50ML/HR,
--- NOTE | 2020-03-02 17:08 | NUR ---
SEDATED GOOD CHEST RISE AND AERATION THROUGHOUT BILATERAL LUNG LEOS AIRWAY PATENT
--- NOTE | 2020-03-02 17:45 | NUR ---
LARGE DARK GREEN STOOL, PERICARE DONE, LEFT HAND IV LEAKING, REMOVED, CATH TIP INTACT, BLEEDING CONTROLLED.
[2020-03-02] MEDS: NACL 0.45% 1,000 ML IV SCH (18:50)
--- NOTE | 2020-03-02 19:00 | NUR ---
PICC LINE CONSENT OBTAINED FROM BROTHER STELLA POLLOCK VIA PHONE, NURSING VIDEO NETWORK ENGINEER NOTIFIED OF PICC ORDER
--- NOTE | 2020-03-02 20:00 | NUR ---
RECEIVED ENDORSEMENT FROM ICU DAY NURSE FOR CONTINUITY OF CARE. PT IN BED AOX1 HE IS INTUBATED AND ON BED REST WITH ALL FALLS PRECAUTIONS IN PLACE, PT HAS 2 IV SITES HE HAS LEFT F/A 20G AND L EJ 18G, WHICH IS RUNNING 1/2 NS AT 50MLS/HR. L F/A RUNNING PROPOFOL ORDERED. PT REMAINS AT RASS-3. HE HAS A NG TUBE IN PLACE. PT RR AT 30 100 FIO2 AND STATING 100%. FLACC-O
--- NOTE | 2020-03-02 21:30 | NUR ---
PT GIVEN ALL ORDERED MEDS. OSMOLITE FEEDING STARTED.
[2020-03-03] VITALS (27 sets, daily range): BP systolic 90–124; BP diastolic 49–85
--- NOTE | 2020-03-03 | NUR ---
PT WAS TURNED AND REPOSITIONED, HE HAS A MORGAN CATHETER INTACT NO BM NOTED. PT ABDOMEN DISTENDED BUT SOFT. ALL FLUIDS RUNNING ORDERED WITH RASS -3 SCORE. MESSAGE LEFT FOR [place] PICC LINE NURSE PICC LINE KIT LEFT AT BEDSIDE.
--- NOTE | 2020-03-03 04:00 | NUR ---
PT IN BED AOX1 ALL FLUIDS RUNNING ORDERED. ALL ORDERED PRECAUTIONS IN PLACE. PT TURNED AND REPOSITIONED. PT IN STABLE CONDITION.
[2020-03-03] MEDS: MIDODRINE 5 MG TAB PO SCH ×3 (05:00→20:07)
[2020-03-03 06:45] LABS: BASOPHILS # (AUTO) 0.1 K/uL (0.00-0.22); BASOPHILS % (AUTO) 0.5 % (0.0-2.0); EOSINOPHILS # (AUTO) 0.5 K/uL (0-0.4); EOSINOPHILS % (AUTO) 2.9 % (0.0-4.0); HEMATOCRIT 36.3 % (36-52); LYMPHOCYTES # (AUTO) 2.6 K/uL (2.0-11.5); LYMPHOCYTES % (AUTO) 16.2 % (20.5-51.1); MEAN CORPUSCULAR HEMOGLOBIN 40 pg (27-31); MEAN CORPUSCULAR HGB CONC 33 g/dL (33-37); MEAN CORPUSCULAR VOLUME 122.3 fL (80-94); MONOCYTES # (AUTO) 1.1 K/uL (0.8-1.0); NEUTROPHILS # (AUTO) 11.8 K/uL (1.8-7.7); NEUTROPHILS % (AUTO) 73.4 % (42.2-75.2); PLATELET COUNT (AUTO) 156 K/uL (140-450); RED BLOOD CELL COUNT(AUTO) 2.97 MIL/uL (4.20-6.10); RED CELL DISTRIBUTION WIDTH 13.6 % (11.6-13.7); WHITE BLOOD COUNT (AUTO) 16.1 K/uL (4.8-10.8)
[2020-03-03 07:06] LABS: CARBON DIOXIDE 21.6 mmol/L (21-32); CREATININE 1.7 mg/dL (0.6-1.3); POTASSIUM 3.6 mmol/L (3.5-5.1)
--- NOTE | 2020-03-03 07:30 | NUR ---
RECEIVED BEDSIDE REPORT FROM VIOLIN MECHANIC NURSE. PT IN BED, LAYING SUPINE, HOB 30 DEGREES. ETT TO VENT: ACVC 100% FIO2, RR 20, PEEP 5. SEDATED TO RASS -3, RESPONDS TO LIGHT PAIN. NG TUBE IN PLACE, OSMOLITE 1.5 DRAINING TO GRAVITY. RECTAL TUBE IN PLACE. MORGAN CATHETER IN PLACE, DRAINING TO GRAVITY, LIGHT ORION URINE. R FA 20G, R EJ 18G, INFUSING PROPOFOL 2 3 MCG/KG/MIN, 0.45% NS @ 50 ML/HR. BED IN LOW POSITION, AIR PLANT ENGINEER IN PLACE. SAFETY MEASURES IN PLACE.
--- NOTE | 2020-03-03 08:45 | NUR ---
RECEIVED ON A PB840 VENTILATOR PLUGGED INTO RED OUTLET TOLERATING WELL WITHOUT ADVERSE REACTIONS NOTED TO AN ENDOTRACHEAL TUBE #8.0 SECURED AT 25cm TEETH/GUM LINE WITH AN ANCHOR FAST CUFF PRESSURE CHECKED NOTED AMBU BAG AT BEDSIDE LOC SEDATED RESTING WELL GOOD CHEST RISE ENDOTRACHEAL TUBE SUCTION FOR COPIOUS THIN ELLIS "FEEDING" SECRETIONS AIRWAY PATENT CORRECTIONAL PROBATION OFFICER TO DISCUSS WITH MYRNA/RN FINDINGS OF PRESENCE OF FEEDING DURING SUCTIONING
[2020-03-03] MEDS: LACTULOSE 20 GM/30 ML UDC PO SCH ×2 (09:29→20:07)
[2020-03-03] MEDS: PANTOPRAZOLE 40 MG INJ VIAL IVP SCH (09:29)
--- NOTE | 2020-03-03 09:48 | NUR ---
ADMINISTERED SCHEDULED AM MEDS PER MD ORDER. MED EDUCATION PROVIDED, REINFORCEMENT NEEDED. G TUBE RESIDUAL 10 ML, FLUSHED BEFORE AND AFTER MEDS. MORNING HYGIENE PROVIDED: HCG BATH, CATHETER CARE, ORAL CARE. REPOSITIONED PT AND OFFLOADED PRESSURE WITH PILLOWS. ACTIVITY TOLERATED WELL, NO SIGNS OF ACUTE DISTRESS NOTED. BED IN LOW POSITION, HOB 30 [address]GREES. KISS MIXER IN PLACE. SAFETY MEASURES IN PLACE.
--- NOTE | 2020-03-03 11:35 | NUR ---
RESTING WELL STABLE GOOD CHEST RISE AIRWAY PATENT
--- NOTE | 2020-03-03 13:33 | NUR ---
ADMINISTERED SCHEDULED MEDS PER MD ORDER. MED EDUCATION PROVIDED, REINFORCEMENT NEEDED. G TUBE RESIDUAL 5 ML, FLUSHED BEFORE AND AFTER MEDS. PT REPOSITIONED AND OFFLOADED PRESSURE WITH PILLOWS. BED IN LOW POSITION, JOURNALISTS AND OTHER WRITERS IN PLACE, SAFETY MEASURES IN PLACE.
[2020-03-03] MEDS: NACL 0.45% 1,000 ML IV SCH (14:50)
--- NOTE | 2020-03-03 16:13 | NUR ---
03/03/20 RD FOLLOW UP COMPLETED PLEASE REFER TO NUTRITION ASSESSMENT UNDER CARE ACTIVITY FOR ESTIMATED NUTRITIONAL NEEDS. 1. CONTINUE OSMOLITE @ 60 ML/HR X 24 HR. START AT 10, INCREASE BY 10 Q4H -THIS WILL PROVIDE 1440 ML OF VOLUME, 1097 ML OF WATER, 2160 KCAL AND 90 GM OF PROTEIN, MEETING >90% OF KCAL AND PROTEIN NEEDS. 2. RECOMMEND FREE WATER FLUSH OF [address] TO FOLLOW-UP 2-3 DAYS, HIGH RISK HASEEB EGAN RD
--- NOTE | 2020-03-03 19:35 | NUR ---
RECEIVED BEDSIDE REPORT FROM DAY SHIFT NURSE. PATIENT IN BED RASS -3. RESPIRATION EVEN UNLABORED ON ETT TO VENT: AC/VC: FIO2 100%, RATE: 20, PEEP: 5 V: 500 SPO2 93%. SKIN IS WARM AND DRY. IV PATENT AND INTACT, PROPOFOL RUNING AT 10.92 MCG/KG/MIN AND 1/2 NS AT 50CC. NGTUBE NOTED. MORGAN CATHETER NOTED DRAINING DARK ORION URINE. RIGHT EJ 18G NOTED. PLAN OF CARE UPDATED. ALL SAFETY MEASURES IN PLACE. BED IS AT LOW POSITION. CALL LIGHT WITHIN REACH. WILL CONTINUE TO MONITOR
[2020-03-03] MEDS: PROPOFOL 1000 MG/100 ML PREMIX 100 ML IV PRN (20:26)
--- NOTE | 2020-03-03 21:30 | NUR ---
SUCTIONED PATIENT, OBTAINED MODERATE AMOUNT OF SECRETION.
--- NOTE | 2020-03-03 22:45 | NUR ---
PROVIDED ORAL CARE
--- NOTE | 2020-03-03 23:15 | NUR ---
PATIENT NGTUBE GOT PULLED OUT. REINSERT NGTUBE AND ORDER CXRAY FOR PLACEMENT
[2020-03-04] VITALS (27 sets, daily range): BP systolic 92–133; BP diastolic 48–80
--- NOTE | 2020-03-04 00:20 | NUR ---
XRAY RESULT NGTUBE NOT IN PLACE, REPOSITIONED NGTUBE WILL ORDER FOR CXRAY FOR PLACEMENT VERIFICATION.
--- NOTE | 2020-03-04 02:00 | NUR ---
PICC LINE NURSE AT BEDSIDE
--- NOTE | 2020-03-04 02:34 | NUR ---
PER PICC LINE NURSE. RIGHT UPPER ARM PICC LINE OKAY TO USE.
--- NOTE | 2020-03-04 02:40 | NUR ---
NGTUBE IN PLACED. RESUME FEEDING
--- NOTE | 2020-03-04 04:30 | NUR ---
PROVIDED MORNING CARE
[2020-03-04] MEDS: MIDODRINE 5 MG TAB PO SCH ×3 (04:44→21:06)
[2020-03-04 06:16] LABS: HEMATOCRIT 36.3 % (36-52); HEMOGLOBIN 11.8 g/dL (12.0-18.0); MEAN CORPUSCULAR HEMOGLOBIN 40 pg (27-31); MEAN CORPUSCULAR HGB CONC 32 g/dL (33-37); MEAN CORPUSCULAR VOLUME 122.5 fL (80-94); PLATELET COUNT (AUTO) 148 K/uL (140-450); RED BLOOD CELL COUNT(AUTO) 2.96 MIL/uL (4.20-6.10); WHITE BLOOD COUNT (AUTO) 24.5 K/uL (4.8-10.8)
[2020-03-04 07:24] LABS: ANION GAP 16.3 (8-16); POTASSIUM 4.3 mmol/L (3.5-5.1)
--- NOTE | 2020-03-04 07:24 | NUR ---
RECEIVED BEDSIDE REPORT FROM CARDIAC CATHETERIZATION TECHNOLOGIST NURSE. PT IN BED, LAYING SUPINE, HOB 30 DEGREES. ETT TO VENT: ACVC 100% FIO2, RR 20, PEEP 5. SEDATED TO RASS -3. NG TUBE IN PLACE, OSMOLITE 1.5 DRAINING TO GRAVITY. RECTAL TUBE IN PLACE. MORGAN CATHETER IN PLACE, DRAINING TO GRAVITY, LIGHT ORION URINE. R FA 20G, R EJ 18G, INFUSING PROPOFOL @ 10 MCG/KG/MIN, 0.45% NS @ 50 ML/HR. BED IN LOW POSITION, PARKING INSPECTOR IN PLACE. SAFETY MEASURES IN PLACE
--- NOTE | 2020-03-04 07:36 | NUR ---
ENDORSED PATIENT TO DAY SHIFT NURSE AT BEDSIDE FOR CONTINUITY OF CARE.
[2020-03-04 07:43] LABS: MAGNESIUM 2.4 mg/dL (1.8-2.4); PHOSPHORUS 3.9 mg/dL (2.5-4.9)
[2020-03-04] MEDS: LACTULOSE 20 GM/30 ML UDC PO SCH ×2 (08:11→21:06)
[2020-03-04] MEDS: PANTOPRAZOLE 40 MG INJ VIAL IVP SCH (08:12)
--- NOTE | 2020-03-04 08:12 | NUR ---
ADMINISTERED SCHEDULED AM MEDS PER MD ORDER. MED EDUCATION PROVIDED, REINFORCEMENT NEEDED. G TUBE RESIDUAL 20 ML, FLUSHED BEFORE AND AFTER MEDS. AM HYGIENE PROVIDED: HCG BATH, ORAL CARE, CATHETER CARE, CHANGED ALL DIRTY LINEN. PT REPOSITIONED AND OFFLOADED PRESSURE WITH PILLOWS. ACTIVITY TOLERATED WELL, NO SIGNS OF ACUTE DISTRESS NOTED. SAFETY MEASURES IN PLACE, PRACTICAL NURSING TEACHER IN PLACE.
[2020-03-04 09:31] LABS: LYMPHOCYTES % (MANUAL) 4 % (20-46); MONOCYTES % (MANUAL) 2 % (5-12)
[2020-03-04] MEDS: NACL 0.45% 1,000 ML IV SCH ×2 (10:50→17:28)
--- NOTE | 2020-03-04 13:25 | NUR ---
ADMINISTERED SCHEDULED MED PER MD ORDER. MED EDUCATION PROVIDED, REINFORCEMENT NEEDED. PT REPOSITIONED AND OFFLOADED PRESSURE WITH PILLOWS. INDUSTRIAL ELECTRICAL TECHNICIAN IN PLACE, SAFETY MEASURES IN PLACE.
[2020-03-04] MEDS: PROPOFOL 1000 MG/100 ML PREMIX 100 ML IV PRN (17:29)
--- NOTE | 2020-03-04 19:09 | NUR ---
RECEIVED PATIENT FROM DAY SHIFT ON DOCUMENTED VENT SETTINGS. VENT PLUGGED INTO RED OUTLET. BMV AT BEDSIDE.ETT SECURED. ALARMS SET. WILL CONT TO MONITOR
--- NOTE | 2020-03-04 20:00 | NUR ---
RECEIVED REPORT FROM DAY SHIFT RN. PT ETT TO VENT. A/C VC. FIO2 100%, TV- 500, PEEP 5, RATE 20. RESPIRATION EVEN AND UNLABORED. CHEST EXPANSION SYMMETRICAL. ORAL MUCOSA PINK AND MOIST. SKIN WARM, DRY AND INTACT. <3 CAPILLARY REFILL. PT HAS ACCESSES ON THE LEFT EJ 18G, LEFT FA 20G SALINE LOCKED, RIGHT UPPER ARM PICC ASYMPTOMATIC, PATENT AND INTACT. PT ON PROPOFOL @10MCG/KG/MIN. RASS -3, DRY WEIGHT OF 74KG. NGT LEFT NARE TO FEEDING. PATENT AND INTACT. GRAVITY FEEDING (OSMOLITE) AT 60MLS/HR / 14 GTTS/MIN. BED IN LOWEST POSITION, SIDE RAILS UP, ISOLATION PRECAUTIONS MAINTAINED. WILL CONTINUE TO MONITOR.
[2020-03-04] MEDS: PIPERACILLIN/TAZOBACTAM 2.25 GM in DEXTROSE 5% 50 ML IV SCH (21:05)
[2020-03-05] VITALS (27 sets, daily range): BP systolic 77–109; BP diastolic 45–65
[2020-03-05] MEDS: PIPERACILLIN/TAZOBACTAM 2.25 GM in DEXTROSE 5% 50 ML IV SCH ×3 (04:31→21:00)
[2020-03-05] MEDS: MIDODRINE 5 MG TAB PO SCH ×3 (05:00→21:00)
[2020-03-05 06:48] LABS: BASOPHILS # (AUTO) 0.1 K/uL (0.00-0.22); BASOPHILS % (AUTO) 0.5 % (0.0-2.0); EOSINOPHILS # (AUTO) 0.4 K/uL (0-0.4); EOSINOPHILS % (AUTO) 2.4 % (0.0-4.0); HEMATOCRIT 34.8 % (36-52); HEMOGLOBIN 11.3 g/dL (12.0-18.0); LYMPHOCYTES % (AUTO) 11.3 % (20.5-51.1); MEAN CORPUSCULAR HEMOGLOBIN 40 pg (27-31); MEAN CORPUSCULAR HGB CONC 32 g/dL (33-37); MEAN CORPUSCULAR VOLUME 122.2 fL (80-94); MONOCYTES # (AUTO) 1.3 K/uL (0.8-1.0); MONOCYTES % (AUTO) 7.7 % (1.7-9.3); NEUTROPHILS # (AUTO) 13.6 K/uL (1.8-7.7); NEUTROPHILS % (AUTO) 78.1 % (42.2-75.2); PLATELET COUNT (AUTO) 107 K/uL (140-450); RED BLOOD CELL COUNT(AUTO) 2.85 MIL/uL (4.20-6.10); RED CELL DISTRIBUTION WIDTH 14.4 % (11.6-13.7); WHITE BLOOD COUNT (AUTO) 17.3 K/uL (4.8-10.8)
--- NOTE | 2020-03-05 07:35 | NUR ---
RECEIVED BEDSIDE REPORT FROM SENIOR PRODUCT CONSULTANT NURSE. PT IN BED, LAYING SUPINE, HOB 30 DEGREES. ETT TO VENT: ACVC 100% FIO2, RR 20, PEEP 5. SEDATED TO RASS -3. NG TUBE IN PLACE, OSMOLITE 1.5 CURRENTLY RUNNING. RECTAL TUBE IN PLACE. MORGAN CATHETER IN PLACE, DRAINING TO GRAVITY, DARK ORION URINE. R FA 20G, R EJ 18G, CONOR PICC LINE. CLEAN DRY INTACT. INFUSING PROPOFOL @ 10 MCG/KG/MIN, 0.45% NS @ 50 ML/HR. BED IN LOW POSITION, DISEASE CASE MANAGER RN IN PLACE. SAFETY MEASURES IN PLACE
[2020-03-05 07:41] LABS: CARBON DIOXIDE 21.7 mmol/L (21-32); CREATININE 2.5 mg/dL (0.6-1.3); POTASSIUM 4.7 mmol/L (3.5-5.1)
[2020-03-05] MEDS: LACTULOSE 20 GM/30 ML UDC PO SCH ×2 (08:55→21:00)
[2020-03-05] MEDS: PANTOPRAZOLE 40 MG INJ VIAL IVP SCH (08:55)
--- NOTE | 2020-03-05 08:58 | NUR ---
ADMINISTERED SCHEDULED MEDS PER MD ORDER. MED EDUCATION PROVIDED, REINFORCEMENT NEEDED. MORNING HYGIENE PROVIDED: ORAL CARE, CATHETER CARE, CHG BATH. PT REPOSITIONED AND OFFLOADED PRESSURE WITH PILLOWS. AIRLINE FLIGHT ATTENDANT IN PLACE. SAFETY MEASURES IN PLACE.
--- NOTE | 2020-03-05 15:25 | NUR ---
03/05/20 RD FOLLOW UP COMPLETED PLEASE REFER TO NUTRITION ASSESSMENT UNDER CARE ACTIVITY FOR ESTIMATED NUTRITIONAL NEEDS. 1. CONTINUE OSMOLITE @ 60 ML/HR X 24 HR. START AT 10, INCREASE BY 10 Q4H -THIS WILL PROVIDE 1440 ML OF VOLUME, 1097 ML OF WATER, 2160 KCAL AND 90 GM OF PROTEIN, MEETING >90% OF KCAL AND PROTEIN NEEDS. 2. CONTINUE FREE WATER FLUSH OF [address] TO FOLLOW-UP 2-3 DAYS, HIGH RISK YUNIEL REDD RD
[2020-03-05] MEDS: PROPOFOL 1000 MG/100 ML PREMIX 100 ML IV PRN (19:19)
--- NOTE | 2020-03-05 19:40 | NUR ---
PT HAD A BM. PT CLEANED, TURNED AND REPOSITIONED. BLISTER OBSERVED ON THE BUTTOCKS. WILL CONTINUE TO MONITOR.
--- NOTE | 2020-03-05 20:00 | NUR ---
RECEIVED REPORT FROM DAY SHIFT RN. PT ETT TO VENT. A/C VC. FIO2 100%, TV- 500, PEEP 8, RATE 20. SATURATION ON THE 80'S. RESPIRATION EVEN AND UNLABORED. CHEST EXPANSION SYMMETRICAL. ORAL MUCOSA PINK AND MOIST. SKIN WARM AND DRY, BLANCHABLE REDNESS OBSERVED ON THE BUTTOCKS WITH BLISTER. <3 CAPILLARY REFILL. PT HAS ACCESSES ON THE LEFT EJ 18G, LEFT FA 20G SALINE LOCKED, RIGHT UPPER ARM PICC ASYMPTOMATIC, PATENT AND INTACT. PT ON PROPOFOL @10MCG/KG/MIN. RASS -3, DRY WEIGHT OF 74KG. NGT LEFT NARE TO FEEDING. PATENT AND INTACT. GRAVITY FEEDING (OSMOLITE) AT 60MLS/HR / 14 GTTS/MIN. BED IN LOWEST POSITION, SIDE RAILS UP, ISOLATION PRECAUTIONS MAINTAINED. WILL CONTINUE TO MONITOR.
[2020-03-05] MEDS ORDERED: NOREPINEPHRINE 4 MG/4 ML VIAL IV ONE (22:43)
--- NOTE | 2020-03-05 23:00 | NUR ---
SPOKE TO DR. SINGH ABOUT PT'S BLOOD PRESSURE SBP 70'S. ORDERED LEVOPHED DRIP 16MG (QUADRUPLE CONCENTRATION). WILL MONITOR PT.
[2020-03-05] MEDS: NOREPINEPHRINE 16 MG in DEXTROSE 5% 250 ML IV PRN (23:13)
[2020-03-06] VITALS (27 sets, daily range): BP systolic 75–119; BP diastolic 47–63
[2020-03-06] MEDS: NACL 0.45% 1,000 ML IV SCH (02:50)
--- NOTE | 2020-03-06 04:00 | NUR ---
TURNED AND REPOSITIONED PT. PRESSURE AREAS OFF LOADED. WILL CONTINUE TO MONITOR.
[2020-03-06] MEDS: PIPERACILLIN/TAZOBACTAM 2.25 GM in DEXTROSE 5% 50 ML IV SCH ×3 (05:00→21:13)
[2020-03-06] MEDS: MIDODRINE 5 MG TAB PO SCH ×3 (05:00→21:14)
[2020-03-06 06:55] LABS: BASOPHILS # (AUTO) 0.1 K/uL (0.00-0.22); BASOPHILS % (AUTO) 0.2 % (0.0-2.0); EOSINOPHILS # (AUTO) 0.4 K/uL (0-0.4); EOSINOPHILS % (AUTO) 1.8 % (0.0-4.0); HEMATOCRIT 33.8 % (36-52); LYMPHOCYTES # (AUTO) 1.8 K/uL (2.0-11.5); LYMPHOCYTES % (AUTO) 7.8 % (20.5-51.1); MEAN CORPUSCULAR HEMOGLOBIN 40 pg (27-31); MEAN CORPUSCULAR HGB CONC 33 g/dL (33-37); MEAN CORPUSCULAR VOLUME 121.6 fL (80-94); MONOCYTES # (AUTO) 1.6 K/uL (0.8-1.0); MONOCYTES % (AUTO) 7.2 % (1.7-9.3); NEUTROPHILS # (AUTO) 18.7 K/uL (1.8-7.7); PLATELET COUNT (AUTO) 111 K/uL (140-450); RED BLOOD CELL COUNT(AUTO) 2.78 MIL/uL (4.20-6.10); RED CELL DISTRIBUTION WIDTH 14.4 % (11.6-13.7); WHITE BLOOD COUNT (AUTO) 22.5 K/uL (4.8-10.8)
[2020-03-06 07:18] LABS: ALBUMIN 1.7 g/dL (3.4-5.0); ANION GAP 14.1 (8-16); CARBON DIOXIDE 20.9 mmol/L (21-32); CREATININE 2.8 mg/dL (0.6-1.3); TOTAL BILIRUBIN 2.5 mg/dL (0.0-1.0)
--- NOTE | 2020-03-06 07:30 | NUR ---
ENDORSED PT TO DAY SHIFT RN FOR CONTINUITY OF CARE.
[2020-03-06 07:32] LABS: MAGNESIUM 2.6 mg/dL (1.8-2.4); PHOSPHORUS 6.7 mg/dL (2.5-4.9)
--- NOTE | 2020-03-06 08:05 | NUR ---
RECEIVED REPORT FORM SPORTS NUTRITIONIST NURSE FOR CONTINUITY OF CARE. PT IN BED, SUPINE POSITION. RASS-3, FLACC 0, NO SOB, NO APPARENT DISTRESS. ETT TO VENT: AC/VC FIO2 100% R 18 PEEP 8 r 20 tv 500. ABD SOFT, NON-DISTENDED, NON-TENDER. WITH CONOR PICC, RUNNING PROPOFOL 10MCG, LEVO 9MCG, 1/2NS 50CC/HR. MORGAN INTACT AND PATENT. NGT TO TUBE FEEDING. SAFETY PRECAUTIONS IN PLACE. WILL CONT TO MONITOR.
[2020-03-06] MEDS: PANTOPRAZOLE 40 MG INJ VIAL IVP SCH (09:00)
[2020-03-06] MEDS: LACTULOSE 20 GM/30 ML UDC PO SCH ×2 (09:00→21:13)
--- NOTE | 2020-03-06 09:30 | NUR ---
DUE MORNING MEDS GIVEN. MORGAN CARE, ORAL CARE, SUCTIONING DONE. REPOSITIONED PT
[2020-03-06] MEDS ORDERED: BUMETANIDE 1 MG/4 ML VIAL IV SCH (13:00)
--- NOTE | 2020-03-06 13:30 | NUR ---
PT'S BROTHER CALLED. UPDATE GIVEN ON PT'S STATUS. REQUESTED TO TALK TO MD. TRANSFERRED CALL TO DR SINGH
--- NOTE | 2020-03-06 14:00 | NUR ---
PT'S CODE STATUS CHANGED TO DNR
--- NOTE | 2020-03-06 17:30 | NUR ---
PERICARE DONE. WITH MODERATE STOOL. REPOSITIONED PT
[2020-03-06] MEDS: PROPOFOL 1000 MG/100 ML PREMIX 100 ML IV PRN (18:51)
--- NOTE | 2020-03-06 20:00 | NUR ---
RECEIVED REPORT FROM DAY SHIFT RN. PT ETT TO VENT. A/C VC. FIO2 100%, TV- 500, PEEP 10, RATE 20. RESPIRATION EVEN AND UNLABORED. CHEST EXPANSION SYMMETRICAL. ORAL MUCOSA PINK AND MOIST. SKIN WARM AND DRY, <3 CAPILLARY REFILL. PT HAS ACCESSES ON THE LEFT EJ 18G, LEFT FA 20G SALINE LOCKED, RIGHT UPPER ARM PICC ASYMPTOMATIC, PATENT AND INTACT. PT ON PROPOFOL @10MCG/KG/MIN, LEVOPHED @ 10MCG/MIN, 1/2 NS @ 50ML/HR. RASS -3, DRY WEIGHT OF 74KG. NGT LEFT NARE TO FEEDING. PATENT AND INTACT. GRAVITY FEEDING (OSMOLITE) AT 60MLS/HR / 14 GTTS/MIN. BED IN LOWEST POSITION, SIDE RAILS UP, ISOLATION PRECAUTIONS MAINTAINED. WILL CONTINUE TO MONITOR.
--- NOTE | 2020-03-06 21:01 | NUR ---
Received Pt from day shift on setting AC 500, R 20, Peep 10, Fio2 100%. Pt intubated with ETT 8.0 secured @ 25 Cm @ teeth. Cuff pressure checked as noted Ambu bag @ bedside. Ventilator plugged to the red outlet, alarms set audible. Pt stable with good chest rise and fall. Airway patent with no respiratory distress. Will continue to monitor.
[2020-03-07] VITALS (24 sets, daily range): BP systolic 89–120; BP diastolic 46–80
--- NOTE | 2020-03-07 | NUR ---
TURNED AND REPOSITIONED PT. PRESSURE AREAS OFF LOADED. WILL CONTINUE TO MONITOR
[2020-03-07] MEDS: NOREPINEPHRINE 16 MG in DEXTROSE 5% 250 ML IV PRN (01:38)
--- NOTE | 2020-03-07 02:00 | NUR ---
PT CONDITION REMAINS UNCHANGED. RASS -3. WILL CONTINUE TO MONITOR.
[2020-03-07] MEDS: NACL 0.45% 1,000 ML IV SCH ×2 (02:50→17:41)
[2020-03-07] MEDS: PIPERACILLIN/TAZOBACTAM 2.25 GM in DEXTROSE 5% 50 ML IV SCH ×3 (05:00→20:51)
[2020-03-07] MEDS: MIDODRINE 5 MG TAB PO SCH ×3 (05:00→20:51)
--- NOTE | 2020-03-07 05:00 | NUR ---
VOMITUS OBSERVED ON THE BED SHEET. PT CLEANED. GRAVITY FEEDING HELD. WILL CONTINUE TO MONITOR.
[2020-03-07 06:56] LABS: BASOPHILS % (AUTO) 0.1 % (0.0-2.0); EOSINOPHILS # (AUTO) 0.3 K/uL (0-0.4); EOSINOPHILS % (AUTO) 1.6 % (0.0-4.0); HEMOGLOBIN 10.8 g/dL (12.0-18.0); LYMPHOCYTES # (AUTO) 1.6 K/uL (2.0-11.5); LYMPHOCYTES % (AUTO) 7.8 % (20.5-51.1); MEAN CORPUSCULAR HEMOGLOBIN 40 pg (27-31); MEAN CORPUSCULAR HGB CONC 32 g/dL (33-37); MEAN CORPUSCULAR VOLUME 124.6 fL (80-94); MONOCYTES # (AUTO) 1.6 K/uL (0.8-1.0); MONOCYTES % (AUTO) 7.9 % (1.7-9.3); NEUTROPHILS % (AUTO) 82.6 % (42.2-75.2); PLATELET COUNT (AUTO) 125 K/uL (140-450); RED BLOOD CELL COUNT(AUTO) 2.73 MIL/uL (4.20-6.10); RED CELL DISTRIBUTION WIDTH 14.2 % (11.6-13.7); WHITE BLOOD COUNT (AUTO) 20.6 K/uL (4.8-10.8)
--- NOTE | 2020-03-07 07:40 | NUR ---
RECEIVED REPORT FORM VACUUM TRUCK DRIVER NURSE FOR CONTINUITY OF CARE. PT IN BED, SUPINE POSITION. RASS-3, FLACC 0, NO SOB, NO APPARENT DISTRESS. ETT TO VENT: AC/VC FIO2 100% R 18 PEEP 8 r 20 tv 500. ABD SOFT, NON-DISTENDED, NON-TENDER. WITH CONOR PICC, RUNNING PROPOFOL 10MCG, LEVO 9MCG, 1/2NS 50CC/HR. MORGAN INTACT AND PATENT. NGT TO TUBE FEEDING. SAFETY PRECAUTIONS IN PLACE. WILL CONT TO MONITOR.
[2020-03-07 07:45] LABS: CARBON DIOXIDE 21.5 mmol/L (21-32); CREATININE 3.2 mg/dL (0.6-1.3); POTASSIUM 5.5 mmol/L (3.5-5.1)
--- NOTE | 2020-03-07 07:45 | NUR ---
REPORT GIVEN TO DAY SHIFT RN FOR CONTINUITY OF CARE.
[2020-03-07 07:51] LABS: MAGNESIUM 2.8 mg/dL (1.8-2.4)
--- NOTE | 2020-03-07 08:45 | NUR ---
RECEIVED ON A [employer] ChargeAPE R860 VENTILATOR PLUGGED INTO RED OUTLET TOLERATING WELL WITHOUT ADVERSE REACTIONS NOTED TO AN ENDOTRACHEAL TUBE #8.0 SECURED AT 25cm TEETH/GUM LINE WITH ANCHOR FAST CUFF PRESSURE CHECKED NOTED AMBU BAG AT BEDSIDE LOC SEDATED RESTING WELL GOOD CHEST RISE ENDOTRACHEAL SUCTION FOR MODERATE THICK YELLOW SECRETIONS AIRWAY PATENT SATURATION 94% ON FIO2 OF 100% PEEP [id number] TITRATED FIO2 TO 90%
[2020-03-07] MEDS: LACTULOSE 20 GM/30 ML UDC PO SCH ×2 (09:00→20:51)
[2020-03-07] MEDS: PANTOPRAZOLE 40 MG INJ VIAL IVP SCH (09:00)
--- NOTE | 2020-03-07 09:30 | NUR ---
DUE MORNING MEDS GIVEN. MORGAN CARE, ORAL CARE, SUCTIONING DONE. REPOSITIONED PT
--- NOTE | 2020-03-07 10:30 | NUR ---
ENDORSED TO SYD MARTÍNEZ
--- NOTE | 2020-03-07 15:30 | NUR ---
RECEIVED PT. FLACC 0, NO SOB, NO APPARENT DISTRESS
[2020-03-07] MEDS: PROPOFOL 1000 MG/100 ML PREMIX 100 ML IV PRN (17:39)
--- NOTE | 2020-03-07 19:30 | NUR ---
PTs LEFT ARM IV IS LEAKY. REMOVED IV. WILL CONT TO MONITOR
--- NOTE | 2020-03-07 20:00 | NUR ---
RECEIVED BEDSIDE REPORT FROM DAY SHIFT NURSE, RASS -3. PT ON ETT TO VENT AC V/C FIO2 80, TV 400, RATE 20, PEEP 10, SATURATING @ 95%. S1S2 NOTED UPON AUSCULTATION, PT HAS CONOR PICC LINE RUNNING PROPOFOL 10 MCG/KG/MIN, LEVOPHED 10 MCG/MIN AND NS 0.45% @ 50ML/HR. BOWEL SOUNDS ACTIVE IN ALL 4 QUADRANTS. NG-TUBE RESIDUAL: 170ML, FEEDING HELD AT THIS TIME. MORGAN CATH IN PLACE DRAINING TO GRAVITY. SKIN WARM DRY. OPEN WOUND TO SACRAL AREA. SAFETY MEASURES IN PLACE, BED LOW AND LOCKED, SIDE RAILS UP, CALL LIGHT WITHIN REACH, WILL CONTINUE TO MONITOR.
--- NOTE | 2020-03-07 22:00 | NUR ---
RASS -3, NO S/S OF DISTRESS NOTED. WILL MONITOR CLOSELY
[2020-03-08] VITALS (20 sets, daily range): BP systolic 64–108; BP diastolic 38–59
--- NOTE | 2020-03-08 | NUR ---
NO S/S OF DISTRESS NOTED. SAFETY MEASURES IN PLACE, WILL CONT TO MONITOR.
--- NOTE | 2020-03-08 04:00 | NUR ---
ROUTINE CARE GIVEN, CLEAN LINEN, VAP ORAL CARE, MORGAN CARE, CHG BATH. SAFETY MEASURES IN PLACE, BED LOW AND LOCKED, SIDE RAILS UP, WILL CONT TO MONITOR
[2020-03-08] MEDS ORDERED: NOREPINEPHRINE 4 MG/4 ML VIAL IV ONE (04:38)
[2020-03-08] MEDS: PIPERACILLIN/TAZOBACTAM 2.25 GM in DEXTROSE 5% 50 ML IV SCH ×3 (05:00→21:24)
[2020-03-08] MEDS: NOREPINEPHRINE 16 MG in DEXTROSE 5% 250 ML IV PRN (05:25)
--- NOTE | 2020-03-08 05:30 | NUR ---
PTs RESIDUAL 260ML. FEEDING STILL HELD, WILL CONT TO MONITOR
[2020-03-08] MEDS: MIDODRINE 5 MG TAB PO SCH ×3 (05:37→21:00)
[2020-03-08] MEDS: PANTOPRAZOLE 40 MG INJ VIAL IVP SCH (09:35)
[2020-03-08] MEDS: LACTULOSE 20 GM/30 ML UDC PO SCH ×2 (09:35→21:00)
--- NOTE | 2020-03-08 09:39 | NUR ---
CHECKED NGT RESIDUAL AND RECEIVED 190 ML WHITE RESIDUAL, STARTED SLOW FEEDING OSMOLITE AT 10 ML/HR WITH GRAVITY. ADMINISTERED SCHEDULED MEDS MD ORDER, FLUSHED BEFORE AND AFTER MED. PROVIDED HYGIENE CARE, SUCTIONING, ORAL CARE, MORGAN AND CHG BATH, PATIENT TOLERATED FAIR, FLACC 0, RASS -3. CONOR PICC RUNNING PROPOFOL AT 10 MCG/KG/MIN, LEVOPHED AT 12 MCG/MIN, AND NS 0.45 50 ML/HR. RESPIRATION EVEN AND UNLABORED ON ETT TO VENT, AC/VC 80%, RATE 20, PEEP 10, SPO2 92%. SAFETY MEASURES IN PLACE. BED IN LOW POSITION, HOB ELEVATED 35 DEGREE, AND BED LOCKED.
[2020-03-08] MEDS ORDERED: SODIUM ZIRCONIUM CYCLOSILICATE 10 GM POWD.PACK PO SCH (15:59)
--- NOTE | 2020-03-08 16:13 | NUR ---
SEDATED STABLE NO DISTRESS NOTED GOOD CHEST RISE ENDOTRACHEAL SUCTION FOR MODERATE THIN YELLOW SECRETIONS AIRWAY PATENT
--- NOTE | 2020-03-08 18:40 | NUR ---
CALLED TO BEDSIDE FOR VENT ALARM ALARM WAS RESOLVED AIR IN TUBE CUFF SLIGHTLY LOW
--- NOTE | 2020-03-08 19:00 | NUR ---
PER DR. MALONEY, PT IS NOW DNR, ALREADY CONFIRMED WITH FAMILY, PT OK FOR PALLIATIVE CARE AND COMFORT MEASURES, CONFIRMED TERMINAL EXTUBATION AFTER PT ALREADY ON MORPHINE DRIP, VERIFIED NO SUPPLEMENTAL OXYGEN AFTER EXTUBATION. WILL CARRY OUT.
[2020-03-08] MEDS ORDERED: LORazepam 2 MG/ML VIAL IVP PRN (19:10)
[2020-03-08] MEDS ORDERED: ONDANSETRON 4 MG/2 ML VIAL IVP PRN (19:10)
[2020-03-08] MEDS ORDERED: MORPHINE SULFATE 4 MG/ML SYR IVP PRN (19:10)
--- NOTE | 2020-03-08 19:15 | NUR ---
Per Dr. Gardner, pt is DNR and comfort measures.
[2020-03-08] MEDS ORDERED: MORPHINE SULFATE 50 MG in NACL 0.9% 45 ML IV PRN (20:00)
--- NOTE | 2020-03-08 20:25 | NUR ---
RECEIVED PATIENT FROM AM SHIFT. PATIENT WAS SEEN AND ASSESSED. FOUND PATIENT IN SUPINE POSITIONED. PATIENT IS INTUBATED WITH ETT SIZE 7.5 AND SECURED WITH ANCHOR-FAST @ 25cm. PATIENT IS ON VENT SETTINGS: AC/VC RR 20, VT 500, PEEP 10, FiO2 80% WITH SPO2 OF 95%. AMBU BAG AT BEDSIDE. VENT IS PLUGGED IN RED OUTLET. ALARMS SET AND AUDIBLE TO ENVIRONMENT. SUCTIONED MODERATE AMOUNT OF YELLOW THICK SECRETIONS FROM ETT. AIRWAY IS PATENT. AUSCULTATION REVEALS BILATERAL COARSE BREATH SOUNDS ON BOTH UPPER AND LOWER LOBES. PATIENT IS IN NO APPARENT RESPIRATORY DISTRESS AT THIS TIME. WILL CONTINUE TO MONITOR PATIENT.
--- NOTE | 2020-03-08 20:42 | NUR ---
03/08/20 RD FOLLOW UP COMPLETED. PLEASE REFER TO NUTRITION ASSESSMENT UNDER CARE ACTIVITY FOR ESTIMATED NUTRITIONAL NEEDS. 1. CONTINUE OSMOLITE @ 60 ML/HR X 24 HR. TO PROVIDE 1440 ML OF VOLUME, 1097 ML OF WATER, 2160 KCAL AND 90 GM OF PROTEIN, MEETING >90% OF KCAL AND PROTEIN NEEDS. 2. CONTINUE FREE WATER FLUSH OF [address] TO FOLLOW-UP 2-3 DAYS, HIGH RISK ALEX TORRES RD
[2020-03-08] MEDS ORDERED: MORPHINE SULFATE 10 MG/ML VIAL ONE (21:01)
--- NOTE | 2020-03-09 02:40 | NUR ---
0240----- terminal extubation performed by RT.
--- NOTE | 2020-03-09 02:40 | NUR ---
TERMINAL EXTUBATION PERFORMED ORDERED
--- NOTE | 2020-03-09 03:18 | NUR ---
TOD PRONOUNCED BY DR. OLE GONZALES AT [id number].
--- NOTE | 2020-03-09 03:26 | NUR ---
FAMILY MEMBER STELLA POLLOCK MADE AWARE OF PT EXPIRING IN ICU 124B. STATED ARRANGEMENTS MADE WITH [facility] IN [facility]. POINT OF CONTACT IS YAIMA BOCANEGRA , AND OFFICE # IS .
--- NOTE | 2020-03-09 03:40 | NUR ---
CONTACTED [facility] AND [facility] . REFERENCE # [id number]
--- NOTE | 2020-03-09 03:57 | NUR ---
SPOKE WITH [employer] LOAN OFFICER OVERLOCK SEWING MACHINE OPERATOR, DRAKE. STATES WILL GET A CALL BACK FROM [employer] OFFIC[employer].
--- NOTE | 2020-03-09 04:12 | NUR ---
SPOKE WITH PULMONARY PHYSICAL THERAPIST, KENNETH GARCIA. BODY IS RELEASED. NO CASE NUMBER NEEDED PER PULMONARY PHYSICAL THERAPIST.
--- NOTE | 2020-03-09 10:38 | NUR ---
CALLED [facility],SPOKE WITH YAIMA [phone], PER YAIMA, THEY ARE STILL WORKING ON ARRANGEMENT FOR BODY MOLD PREPARER, ONCE THEY ARE READY, THE WILL CALL US BACK. PER JASMYN ERWIN WILL BE IN CONTACT WITH US FOR MOLD PREPARER.
--- NOTE | 2020-03-09 10:55 | NUR ---
SECURITY BRIANA NOTIFIED TO MOVE BODY TO FREEZER.
[2020-03-09] MEDS ORDERED: SODIUM ZIRCONIUM CYCLOSILICATE 10 GM POWD.PACK PO ONE (11:20)
--- NOTE | 2020-03-09 12:00 | NUR ---
SECURITY MOVED BODY TO FREEZER.
--- NOTE | 2020-03-09 15:06 | NUR ---
RECORD HANDED OVER TO
== END 2020-03-09 11:21 | DRG 870 ==
LOC: MED 22:07 → MTU 02-26 01:25
PROVIDERS: ADMIT Family Medicine; ATTEND Family Medicine
PROC: 0W9G3ZZ Drainage of Peritoneal Cavity, Percutaneous Approach (ICD-10-PCS; principal; 2020-02-29)
PROC: 5A1955Z Respiratory Ventilation, Greater than 96 Consecutive Hours (ICD-10-PCS; 2020-03-02)
PROC: 0BH17EZ Insertion of Endotracheal Airway into Trachea, Via Natural or Artificial Opening (ICD-10-PCS; 2020-03-02)
DX: A41.9 Sepsis, unspecified organism (principal); J69.0 Pneumonitis due to inhalation of food and vomit; E43 Unspecified severe protein-calorie malnutrition; J96.01 Acute respiratory failure with hypoxia; G93.41 Metabolic encephalopathy; R65.21 Severe sepsis with septic shock; B37.49 Other urogenital candidiasis; R18.8 Other ascites; K76.6 Portal hypertension; R64 Cachexia; N17.9 Acute kidney failure, unspecified; C22.9 Malignant neoplasm of liver, not specified as primary or secondary; E86.0 Dehydration; K72.90 Hepatic failure, unspecified without coma; K74.60 Unspecified cirrhosis of liver; Z20.828 Contact with and (suspected) exposure to other viral communicable diseases; Z87.01 Personal history of pneumonia (recurrent); Z87.891 Personal history of nicotine dependence; Z68.32 Body mass index [BMI] 32.0-32.9, adult; B37.9 Candidiasis, unspecified; I12.9 Hypertensive chronic kidney disease with stage 1 through stage 4 chronic kidney disease, or unspecified chronic kidney disease; N18.31 Chronic kidney disease, stage 3a; E87.5 Hyperkalemia
CPT/HCPCS: 36415; 36600; 49083; 70450; 71045; 71250; 76705; 76770; 80048; 80053; 80305; 81001; 82140; 82150; 82550; 82553; 82803; 82945; 83036; 83605; 83615; 83690; 83735; 83874; 83880; 84100; 84157; 84436; 84439; 84443; 84479; 84484; 85025; 85610; 85730; 86900; 86901; 87040; 87070; 87075; 87081; 87086; 87205; 89051; 93005; 93970; 94002; 94003; 96365; 96367; 99291; C9113; J0696; J1450; J1644; J2001; J2270; J2543; J2704; J3490; J7060; U0003